=== PATIENT | female | born 1980 | race Caucasian/White ===

== ENCOUNTER 2018-04-11 18:52 | Inpatient (IN) | payer BC ==
[~2018-04-11] VITALS: Ht 165.1 cm; Wt 59.0 kg
[~2018-04-11 18:52] MED LIST: IBUP-1222 PO; OXYC-302 PO; none per pt
[2018-04-11 19:44] LABS: MICROSCOPIC AUTO
[2018-04-11] MEDS ORDERED: BETAMETHASONE 6 MG/ML, 5ML IM ONE (20:15)
[2018-04-11] MEDS: BETAMETHASONE 6 MG/ML, 5ML IM SCH (20:22)
[2018-04-11] MEDS ORDERED: MAGNESIUM SULF. PMX 20GM/500ML 500 ML IV ONE (20:22)
[2018-04-11] MEDS: PLEASE ENTER HEIGHT AND WEIGHT MC SCH (20:30)
[2018-04-11] MEDS ORDERED: MAGNESIUM SULFATE PMX 4GM/100M 100 ML IVPB ONE (21:00)
[2018-04-11] MEDS: MAGNESIUM SULF. PMX 20GM/500ML 500 ML IV SCH (21:09)
[2018-04-11 23:26] LABS: BASOPHILS # (AUTO) 0.03 x10^3/uL (0-0.1); BASOPHILS % (AUTO) 0 % (0-1); EOSINOPHILS # (AUTO) 0.04 x10^3/uL (0-0.4); EOSINOPHILS % (AUTO) 0 % (1-7); LYMPHOCYTES # (AUTO) 1.23 x10^3/uL (1-3.4); LYMPHOCYTES % (AUTO) 10 % (22-44); MD NO; MEAN CORPUSCULAR HEMOGLOBIN 32.3 pg (27.0-34.8); MEAN CORPUSCULAR HGB CONC 33.8 g/dL (32.4-35.8); MEAN CORPUSCULAR VOLUME 95.7 fL (80-100); MONOCYTES % (AUTO) 3 % (2-9); NEUTROPHILS # (AUTO) 10.45 x10^3/uL (1.8-6.8); NEUTROPHILS % (AUTO) 87 % (42-75); PLATELET COUNT 163 x10^3/uL (130-400); RED BLOOD COUNT 4.31 x10^6/uL (3.82-5.3); RED CELL DISTRIBUTION WIDTH 13.8 % (9.6-15.2)
[2018-04-11 23:38] LABS: ALANINE AMINOTRANSFERASE 20 U/L (12-78); ALBUMIN 2.5 g/dL (3.4-5.0); ANION GAP 8 mmol/L (5-15); CHLORIDE 107 mmol/L (98-107); CREATININE 0.49 mg/dL (0.55-1.02)
[2018-04-11 23:40] LABS: ALKALINE PHOSPHATASE 119 U/L (45-117); BILIRUBIN,TOTAL 0.2 mg/dL (0.2-1.0); TOTAL PROTEIN 6.4 g/dL (6.4-8.2)
[2018-04-12] MEDS ORDERED: MAGNESIUM SULF. PMX 20GM/500ML 500 ML IV ONE ×2 (03:19→18:51)
[2018-04-12] MEDS: MAGNESIUM SULF. PMX 20GM/500ML 500 ML IV SCH ×3 (03:23→18:55)
[2018-04-12] MEDS: LACTATED RINGERS 1,000 ML IV PRN ×2 (03:24→11:52)
[2018-04-12] MEDS: PLEASE ENTER HEIGHT AND WEIGHT MC SCH ×2 (04:30→12:30)
[2018-04-12] MEDS: INDOMETHACIN 50 MG CAPSULE PO SCH ×3 (09:56→22:01)
[2018-04-12] MEDS ORDERED: INDOMETHACIN 50 MG CAPSULE PO SCH (11:00)
[2018-04-12] MEDS ORDERED: BETAMETHASONE 6 MG/ML, 5ML IM ONE (20:17)
[2018-04-12] MEDS: BETAMETHASONE 6 MG/ML, 5ML IM SCH (20:20)
[2018-04-13] MEDS: INDOMETHACIN 50 MG CAPSULE PO SCH ×4 (03:27→23:11)
[2018-04-13] MEDS: LACTATED RINGERS 1,000 ML IV PRN (07:32)
[2018-04-13] MEDS ORDERED: MAGNESIUM SULF. PMX 20GM/500ML 500 ML IV ONE (07:44)
[2018-04-13] MEDS ORDERED: PRENATAL VIT/IRON/FA 1 EACH TABLET ONE (07:44)
[2018-04-13] MEDS ORDERED: DOCUSATE 100 MG CAPSULE ONE ×2 (07:44→20:36)
[2018-04-13] MEDS: DOCUSATE 100 MG CAPSULE PO SCH ×2 (07:49→20:40)
[2018-04-13] MEDS: PRENATAL VIT/IRON/FA 1 EACH TABLET PO SCH (07:49)
[2018-04-13] MEDS ORDERED: INDOMETHACIN 50 MG CAPSULE ONE ×3 (07:52→23:09)
[2018-04-13] MEDS: MAGNESIUM SULF. PMX 20GM/500ML 500 ML IV SCH (07:53)
[2018-04-13 09:30] VITALS: BP 98/56
[2018-04-13] MEDS ORDERED: CEFAZOLIN PMX 2GM/50ML 50 ML IVPB ONE (13:30)
[2018-04-13] MEDS: CEPHALEXIN 500 MG CAPSULE PO SCH (20:57)
[2018-04-14] MEDS ORDERED: INDOMETHACIN 50 MG CAPSULE ONE ×3 (04:52→17:18)
[2018-04-14] MEDS: INDOMETHACIN 50 MG CAPSULE PO SCH ×3 (04:54→17:19)
[2018-04-14] MEDS ORDERED: DOCUSATE 100 MG CAPSULE ONE (08:54)
[2018-04-14] MEDS ORDERED: PRENATAL VIT/IRON/FA 1 EACH TABLET ONE (08:54)
[2018-04-14] MEDS: DOCUSATE 100 MG CAPSULE PO SCH (09:00)
[2018-04-14] MEDS: CEPHALEXIN 500 MG CAPSULE PO SCH (09:26)
[2018-04-14] MEDS: PRENATAL VIT/IRON/FA 1 EACH TABLET PO SCH (09:26)
[2018-04-14] MEDS: SODIUM CHLORIDE FLUSH 10ML SYR IVF SCH ×2 (09:27→20:00)
[2018-04-15] MEDS ORDERED: INDOMETHACIN 50 MG CAPSULE ONE (03:52)
[2018-04-15] MEDS ORDERED: PRENATAL VIT/IRON/FA 1 EACH TABLET ONE (07:24)
[2018-04-15] MEDS: PRENATAL VIT/IRON/FA 1 EACH TABLET PO SCH (07:26)
[2018-04-15] MEDS: DOCUSATE 100 MG CAPSULE PO SCH ×2 (07:38→09:00)
[2018-04-15 07:45] VITALS: BP 94/51
[2018-04-15] MEDS ORDERED: PREN1TAB60 PO (07:51)
[2018-04-15] MEDS: SODIUM CHLORIDE FLUSH 10ML SYR IVF SCH (09:52)
== END 2018-04-15 18:02 | disposition home or self-care (01) | DRG 781 ==
LOC: LDOP 18:52 → LDIP 20:46
PROVIDERS: ADMIT Obstetrics & Gynecology Gynecology; ATTEND Obstetrics & Gynecology Gynecology
DX: O23.42 Unspecified infection of urinary tract in pregnancy, second trimester (principal); O26.872 Cervical shortening, second trimester; O60.02 Preterm labor without delivery, second trimester; O30.042 Twin pregnancy, dichorionic/diamniotic, second trimester; Z3A.27 27 weeks gestation of pregnancy
CPT/HCPCS: 36415; 76805; 80053; 81001; 82731; 83735; 85025; 87077; 87081; 87086; J0690; J0702; J3475; J7120

== ENCOUNTER 2018-04-16 19:14 | Inpatient (IN) | payer BC ==
[~2018-04-16] VITALS: Ht 165.1 cm; Wt 64.1 kg
[~2018-04-16 19:14] MED LIST changes: +PREN1TAB60 PO
[2018-04-16] MEDS: PLEASE ENTER HEIGHT AND WEIGHT MC SCH ×3 (19:30→23:30)
[2018-04-16] MEDS ORDERED: MAGNESIUM SULF. PMX 20GM/500ML 500 ML IV ONE (20:11)
[2018-04-16] MEDS ORDERED: LACTATED RINGERS 1,000 ML IV PRN (20:12)
[2018-04-16] MEDS ORDERED: MAGNESIUM SULF. PMX 20GM/500ML 500 ML IV SCH (20:12)
[2018-04-16] MEDS ORDERED: MAGNESIUM SULFATE PMX 4GM/100M 100 ML ONE (20:28)
[2018-04-16] MEDS ORDERED: CALCIUM GLUCONATE 4.6 MEQ/10 ML IV PRN (20:30)
[2018-04-16] MEDS ORDERED: PLEASE ENTER HEIGHT AND WEIGHT MC SCH (20:30)
[2018-04-16] MEDS ORDERED: MAGNESIUM SULFATE PMX 4GM/100M 100 ML IVPB ONE (20:30)
[2018-04-16 21:25] VITALS: BP 103/65
[2018-04-17] MEDS: PLEASE ENTER HEIGHT AND WEIGHT MC SCH ×15 (01:30→23:30)
[2018-04-17] MEDS ORDERED: DOCUSATE 100 MG CAPSULE ONE (08:10)
[2018-04-17] MEDS ORDERED: PRENATAL VIT/IRON/FA 1 EACH TABLET ONE (08:10)
[2018-04-17] MEDS: PRENATAL VIT/IRON/FA 1 EACH TABLET PO SCH (08:14)
[2018-04-17] MEDS: DOCUSATE 100 MG CAPSULE PO SCH ×2 (08:14→21:00)
[2018-04-17] MEDS ORDERED: MAGNESIUM SULF. PMX 20GM/500ML 500 ML IV ONE ×2 (10:18→21:40)
[2018-04-17 20:00] VITALS: BP 104/61
[2018-04-17] MEDS ORDERED: MAGNESIUM SULF. PMX 20GM/500ML 500 ML IV SCH ×2 (20:12)
[2018-04-17] MEDS ORDERED: LACTATED RINGERS 1,000 ML IV PRN (20:12)
[2018-04-18 08:00] VITALS: BP 95/54
[2018-04-18] MEDS ORDERED: PRENATAL VIT/IRON/FA 1 EACH TABLET ONE (08:33)
[2018-04-18] MEDS ORDERED: DOCUSATE 100 MG CAPSULE ONE ×2 (08:33→21:27)
[2018-04-18] MEDS ORDERED: MAGNESIUM SULF. PMX 20GM/500ML 500 ML IV ONE ×2 (08:35→20:03)
[2018-04-18] MEDS: DOCUSATE 100 MG CAPSULE PO SCH ×2 (08:37→21:29)
[2018-04-18] MEDS: PRENATAL VIT/IRON/FA 1 EACH TABLET PO SCH (08:37)
[2018-04-18] MEDS: MAGNESIUM SULF. PMX 20GM/500ML 500 ML IV SCH ×2 (08:39→20:08)
[2018-04-18 12:00] VITALS: BP 100/64
[2018-04-18 16:00] VITALS: BP 104/64
[2018-04-18] MEDS: LACTATED RINGERS 1,000 ML IV PRN (20:09)
[2018-04-19] MEDS ORDERED: MAGNESIUM SULF. PMX 20GM/500ML 500 ML IV ONE ×2 (07:07→17:38)
[2018-04-19] MEDS: MAGNESIUM SULF. PMX 20GM/500ML 500 ML IV SCH ×2 (07:10→18:04)
[2018-04-19] MEDS ORDERED: PRENATAL VIT/IRON/FA 1 EACH TABLET ONE (08:14)
[2018-04-19] MEDS ORDERED: DOCUSATE 100 MG CAPSULE ONE ×2 (08:15→20:40)
[2018-04-19] MEDS: DOCUSATE 100 MG CAPSULE PO SCH ×2 (08:17→20:42)
[2018-04-19] MEDS: PRENATAL VIT/IRON/FA 1 EACH TABLET PO SCH (08:17)
[2018-04-19] MEDS: LACTATED RINGERS 1,000 ML IV PRN ×2 (09:46→20:42)
[2018-04-20] MEDS ORDERED: MAGNESIUM SULF. PMX 20GM/500ML 500 ML IV ONE (04:16)
[2018-04-20] MEDS: MAGNESIUM SULF. PMX 20GM/500ML 500 ML IV SCH (04:19)
[2018-04-20] MEDS ORDERED: SENNA/DOCUSATE TABLET ONE (08:01)
[2018-04-20] MEDS ORDERED: PRENATAL VIT/IRON/FA 1 EACH TABLET ONE (08:01)
[2018-04-20] MEDS: SENNA/DOCUSATE TABLET PO SCH ×2 (09:04→21:00)
[2018-04-20] MEDS: PRENATAL VIT/IRON/FA 1 EACH TABLET PO SCH (09:04)
[2018-04-20] MEDS ORDERED: MAGNESIUM SULF. PMX 20GM/500ML 500 ML IV SCH (10:30)
[2018-04-20] MEDS: LACTATED RINGERS 1,000 ML IV PRN (12:48)
[2018-04-20] MEDS: SODIUM CHLORIDE FLUSH 3ML SYRINGE IVF SCH (19:15)
[2018-04-20] MEDS ORDERED: INDOMETHACIN 50 MG CAPSULE ONE (21:55)
[2018-04-20] MEDS ORDERED: INDOMETHACIN 50 MG CAPSULE PO SCH (22:00)
[2018-04-21] MEDS ORDERED: INDOMETHACIN 50 MG CAPSULE ONE ×4 (03:25→22:11)
[2018-04-21] MEDS: INDOMETHACIN 50 MG CAPSULE PO SCH ×4 (03:53→22:15)
[2018-04-21] MEDS ORDERED: PRENATAL VIT/IRON/FA 1 EACH TABLET ONE (07:41)
[2018-04-21] MEDS ORDERED: DOCUSATE 100 MG CAPSULE ONE ×2 (07:41→21:07)
[2018-04-21] MEDS: DOCUSATE 100 MG CAPSULE PO SCH ×2 (07:46→21:12)
[2018-04-21] MEDS: PRENATAL VIT/IRON/FA 1 EACH TABLET PO SCH (07:46)
[2018-04-21 07:51] VITALS: BP 93/63
[2018-04-21] MEDS: SENNA/DOCUSATE TABLET PO SCH ×2 (09:00→21:00)
[2018-04-21 17:52] VITALS: BP 100/57
[2018-04-21] MEDS: SODIUM CHLORIDE FLUSH 3ML SYRINGE IVF SCH (21:12)
[2018-04-22] MEDS ORDERED: INDOMETHACIN 50 MG CAPSULE ONE ×4 (04:26→21:27)
[2018-04-22] MEDS: INDOMETHACIN 50 MG CAPSULE PO SCH ×5 (04:29→22:30)
[2018-04-22 07:29] VITALS: BP 98/58
[2018-04-22] MEDS ORDERED: DOCUSATE 100 MG CAPSULE ONE ×2 (07:38→21:26)
[2018-04-22] MEDS ORDERED: PRENATAL VIT/IRON/FA 1 EACH TABLET ONE (07:38)
[2018-04-22] MEDS: DOCUSATE 100 MG CAPSULE PO SCH ×4 (07:40→22:11)
[2018-04-22] MEDS: PRENATAL VIT/IRON/FA 1 EACH TABLET PO SCH (07:40)
[2018-04-22] MEDS: SENNA/DOCUSATE TABLET PO SCH ×2 (09:00→21:00)
[2018-04-22] MEDS: SODIUM CHLORIDE FLUSH 3ML SYRINGE IVF SCH ×3 (09:00→22:13)
[2018-04-22 20:00] VITALS: BP 112/55
[2018-04-22] MEDS ORDERED: SENNA/DOCUSATE TABLET ONE (21:26)
[2018-04-23 00:48] VITALS: BP 102/58
[2018-04-23] MEDS: INDOMETHACIN 50 MG CAPSULE PO SCH ×2 (04:30→10:30)
[2018-04-23 07:00] VITALS: BP 97/59
[2018-04-23] MEDS: DOCUSATE 100 MG CAPSULE PO SCH ×2 (09:00→21:00)
[2018-04-23] MEDS: SENNA/DOCUSATE TABLET PO SCH (09:00)
[2018-04-23] MEDS: SODIUM CHLORIDE FLUSH 3ML SYRINGE IVF SCH (09:00)
[2018-04-23] MEDS ORDERED: PRENATAL VIT/IRON/FA 1 EACH TABLET ONE (19:34)
[2018-04-23] MEDS ORDERED: DOCUSATE 100 MG CAPSULE ONE (19:35)
[2018-04-23] MEDS: PRENATAL VIT/IRON/FA 1 EACH TABLET PO SCH (19:38)
[2018-04-23 19:43] VITALS: BP 101/58
[2018-04-24] MEDS ORDERED: PRENATAL VIT/IRON/FA 1 EACH TABLET ONE (08:06)
[2018-04-24] MEDS ORDERED: DOCUSATE 100 MG CAPSULE ONE ×2 (08:06→23:05)
[2018-04-24] MEDS: DOCUSATE 100 MG CAPSULE PO SCH ×2 (08:14→21:00)
[2018-04-24] MEDS: PRENATAL VIT/IRON/FA 1 EACH TABLET PO SCH (09:00)
[2018-04-24 23:00] VITALS: BP 105/54
[2018-04-25] MEDS ORDERED: PRENATAL VIT/IRON/FA 1 EACH TABLET ONE (07:26)
[2018-04-25] MEDS ORDERED: DOCUSATE 100 MG CAPSULE ONE (07:26)
[2018-04-25] MEDS: DOCUSATE 100 MG CAPSULE PO PRN (07:27)
[2018-04-25] MEDS: PRENATAL VIT/IRON/FA 1 EACH TABLET PO SCH (07:27)
[2018-04-25 15:22] VITALS: BP 100/55
[2018-04-26 07:06] VITALS: BP 100/51
[2018-04-26] MEDS: DOCUSATE 100 MG CAPSULE PO PRN (07:10)
[2018-04-26] MEDS ORDERED: PRENATAL VIT/IRON/FA 1 EACH TABLET ONE (07:36)
[2018-04-26] MEDS: PRENATAL VIT/IRON/FA 1 EACH TABLET PO SCH (07:37)
== END 2018-04-27 12:43 | disposition home or self-care (01) | DRG 782 ==
LOC: LDOP 19:14 → LDIP 20:21
PROVIDERS: ADMIT Obstetrics & Gynecology Gynecology; ATTEND Obstetrics & Gynecology Gynecology
DX: O30.033 Twin pregnancy, monochorionic/diamniotic, third trimester (principal); O60.03 Preterm labor without delivery, third trimester; O34.211 Maternal care for low transverse scar from previous cesarean delivery; O32.1XX0 Maternal care for breech presentation, not applicable or unspecified; Z3A.29 29 weeks gestation of pregnancy
CPT/HCPCS: 36415; 76815; 76819; 83735; J3475; J7120

== ENCOUNTER 2018-05-12 12:18 | Outpatient (CLI) | payer BC ==
[2018-05-13] MEDS ORDERED: NIFE10CA2 PO (14:01)
== END 2018-05-12 16:32 | disposition home or self-care (01) ==
LOC: LDOP 12:18
PROVIDERS: ATTEND Obstetrics & Gynecology Gynecology
DX: O30.003 Twin pregnancy, unspecified number of placenta and unspecified number of amniotic sacs, third trimester (principal); Z3A.32 32 weeks gestation of pregnancy
CPT/HCPCS: 59025; 76819; 99211; G0463

== ENCOUNTER 2018-05-13 12:18 | Outpatient (CLI) | payer BC ==
[~2018-05-13] VITALS: Ht 165.1 cm; Wt 60.5 kg
[2018-05-13 12:57] VITALS: BP 104/58
[2018-05-13] MEDS ORDERED: NIFE10CA2 PO (14:01)
== END 2018-05-13 14:24 | disposition home or self-care (01) ==
LOC: LDOP 12:18
PROVIDERS: ATTEND Obstetrics & Gynecology Gynecology
DX: O36.8130 Decreased fetal movements, third trimester, not applicable or unspecified (principal); Z3A.32 32 weeks gestation of pregnancy
CPT/HCPCS: 59025; 99211; G0463

== ENCOUNTER 2018-05-15 10:37 | Inpatient (IN) | payer BC ==
[~2018-05-15] VITALS: Ht 165.1 cm; Wt 60.5 kg
[~2018-05-15 10:37] MED LIST changes: +NIFE10CA2 PO
[2018-05-15] MEDS ORDERED: MAGNESIUM SULF. PMX 20GM/500ML 500 ML IV SCH (11:17)
[2018-05-15] MEDS ORDERED: LACTATED RINGERS 1,000 ML IV PRN (11:17)
[2018-05-15] MEDS ORDERED: MAGNESIUM SULF. PMX 20GM/500ML 500 ML IV ONE ×2 (11:21→15:38)
[2018-05-15] MEDS ORDERED: MAGNESIUM SULFATE PMX 4GM/100M 100 ML IVPB ONE (11:30)
[2018-05-15 11:47] LABS: BASOPHILS # (AUTO) 0.02 x10^3/uL (0-0.1); BASOPHILS % (AUTO) 0 % (0-1); EOSINOPHILS # (AUTO) 0.07 x10^3/uL (0-0.4); EOSINOPHILS % (AUTO) 1 % (1-7); LYMPHOCYTES # (AUTO) 1.55 x10^3/uL (1-3.4); LYMPHOCYTES % (AUTO) 20 % (22-44); MD NO; MEAN CORPUSCULAR HEMOGLOBIN 32.9 pg (27.0-34.8); MEAN CORPUSCULAR HGB CONC 34.4 g/dL (32.4-35.8); MEAN CORPUSCULAR VOLUME 95.9 fL (80-100); MEAN PLATELET VOLUME 8.4 fL (7.4-10.4); MONOCYTES % (AUTO) 13 % (2-9); NEUTROPHILS # (AUTO) 4.93 x10^3/uL (1.8-6.8); NEUTROPHILS % (AUTO) 65 % (42-75); PLATELET COUNT 138 x10^3/uL (130-400); RED BLOOD COUNT 3.79 x10^6/uL (3.82-5.3); RED CELL DISTRIBUTION WIDTH 13.7 % (9.6-15.2)
[2018-05-15 12:45] LABS: ALBUMIN 2.1 g/dL (3.4-5.0); ANION GAP 8 mmol/L (5-15); CHLORIDE 109 mmol/L (98-107)
[2018-05-15 12:48] LABS: ALANINE AMINOTRANSFERASE 16 U/L (12-78); ALKALINE PHOSPHATASE 176 U/L (45-117); BILIRUBIN,TOTAL 0.4 mg/dL (0.2-1.0); CREATININE 0.51 mg/dL (0.55-1.02); TOTAL PROTEIN 5.6 g/dL (6.4-8.2)
[2018-05-15] MEDS ORDERED: OXYTOCIN 30U/ 0.9% NaCL 500ML 500 ML ONE (15:38)
[2018-05-15] MEDS ORDERED: METOCLOPRAMIDE 5 MG/ML, 2ML ONE (16:35)
[2018-05-15] MEDS ORDERED: SODIUM CITRATE/CITRIC ACID 30 ML UDC ONE (16:36)
[2018-05-15] MEDS ORDERED: LACTATED RINGERS 1,000 ML IV SCH ×2 (16:38→16:54)
[2018-05-15] MEDS ORDERED: CEFAZOLIN 1,000 MG ONE (16:45)
[2018-05-15] MEDS ORDERED: PHENYLEPHRINE 10 MG/ML ONE (16:45)
[2018-05-15] MEDS ORDERED: EPHEDRINE 50 MG/ML, 1ML ONE (16:45)
[2018-05-15] MEDS ORDERED: KETOROLAC 30 MG/1 ML ONE (16:45)
[2018-05-15] MEDS ORDERED: DEXAMETHASONE 4 MG/ML, 1ML ONE (16:45)
[2018-05-15] MEDS ORDERED: ONDANSETRON 2MG/ML, 2ML ONE (16:45)
[2018-05-15] MEDS ORDERED: OXYTOCIN 10 UNITS/ML, 1ML ONE (16:45)
[2018-05-15] MEDS ORDERED: FENTANYL PF 100 MCG/2ML ONE (16:45)
[2018-05-15] MEDS: LACTATED RINGERS 1,000 ML IV SCH (16:54)
[2018-05-15] MEDS: OXYTOCIN 30U/ 0.9% NaCL 500ML 500 ML IV SCH (16:54)
[2018-05-15] MEDS ORDERED: LACTATED RINGERS 1,000 ML IVBOLUS ONE (17:00)
[2018-05-15] MEDS ORDERED: OXYcodone/APAP 5/325MG TABLET PO PRN (17:00)
[2018-05-15] MEDS ORDERED: MISOPROSTOL 200 MCG TABLET PR PRN (17:00)
[2018-05-15] MEDS ORDERED: MEASLES,MUMPS&RUBELLA VACC/PF 0.5 ML SQ-VACC PRN (17:00)
[2018-05-15] MEDS ORDERED: CALCIUM CARBONATE 500 MG TAB.CHEW PO PRN (17:00)
[2018-05-15] MEDS ORDERED: METOCLOPRAMIDE 5 MG/ML, 2ML IV ONE (17:00)
[2018-05-15] MEDS ORDERED: KETOROLAC 30 MG/1 ML IV SCH (17:00)
[2018-05-15] MEDS ORDERED: ONDANSETRON 2MG/ML, 2ML IV PRN (17:00)
[2018-05-15] MEDS ORDERED: SIMETHICONE 80 MG CHEW TAB PO PRN (17:00)
[2018-05-15] MEDS ORDERED: DIPH,PERTUSS(ACELL),TET VAC/PF NC IM-VACC PRN (17:00)
[2018-05-15] MEDS ORDERED: ACETAMINOPHEN 325 MG TABLET PO PRN ×2 (17:00)
[2018-05-15] MEDS ORDERED: SODIUM CITRATE/CITRIC ACID 30 ML UDC PO ONE (17:00)
[2018-05-15] MEDS ORDERED: NEWBORN KIT ONE (17:27)
[2018-05-15] MEDS ORDERED: MEPERIDINE/PF 100 MG/ML ONE (18:30)
[2018-05-15] MEDS ORDERED: HYDROcodone/APAP 7.5-325MG/15ML UDC ONE (20:04)
[2018-05-15] MEDS ORDERED: HYDROcodone/APAP 7.5-325MG/15ML UDC PO ONE (20:30)
[2018-05-15] MEDS ORDERED: MEPERIDINE/PF 25MG/0.5ML IVPush PRN (20:30)
[2018-05-15 21:20] VITALS: BP 105/67
[2018-05-16] MEDS: KETOROLAC 30 MG/1 ML IV SCH ×4 (00:01→18:25)
[2018-05-16 00:15] VITALS: BP 100/65
[2018-05-16] MEDS: LACTATED RINGERS 1,000 ML IV SCH ×3 (00:54→16:54)
[2018-05-16] MEDS: OXYcodone/APAP 5/325MG TABLET PO PRN ×3 (01:17→06:15)
[2018-05-16] MEDS: OXYTOCIN 30U/ 0.9% NaCL 500ML 500 ML IV SCH ×3 (02:34→22:54)
[2018-05-16 04:10] VITALS: BP 94/60
[2018-05-16 05:26] LABS: BASOPHILS # (AUTO) 0.01 x10^3/uL (0-0.1); BASOPHILS % (AUTO) 0 % (0-1); EOSINOPHILS % (AUTO) 0 % (1-7); LYMPHOCYTES # (AUTO) 1.28 x10^3/uL (1-3.4); LYMPHOCYTES % (AUTO) 11 % (22-44); MD NO; MEAN CORPUSCULAR HEMOGLOBIN 32.9 pg (27.0-34.8); MEAN CORPUSCULAR HGB CONC 34.1 g/dL (32.4-35.8); MEAN CORPUSCULAR VOLUME 96.4 fL (80-100); MEAN PLATELET VOLUME 8.8 fL (7.4-10.4); MONOCYTES # (AUTO) 1.27 x10^3/uL (0.2-0.8); MONOCYTES % (AUTO) 11 % (2-9); NEUTROPHILS # (AUTO) 8.65 x10^3/uL (1.8-6.8); NEUTROPHILS % (AUTO) 77 % (42-75); PLATELET COUNT 135 x10^3/uL (130-400); RED BLOOD COUNT 3.31 x10^6/uL (3.82-5.3); RED CELL DISTRIBUTION WIDTH 13.7 % (9.6-15.2)
[2018-05-16 07:00] VITALS: BP 96/66
[2018-05-16] MEDS: PRENATAL VIT/IRON/FA 1 EACH TABLET PO SCH (07:32)
[2018-05-16] MEDS: DOCUSATE 100 MG CAPSULE PO PRN ×2 (07:33→20:40)
[2018-05-16 12:00] VITALS: BP 109/66
[2018-05-16] MEDS: OXYcodone IR 5MG TABLET PO PRN ×2 (16:36→20:40)
[2018-05-16 19:20] VITALS: BP 107/64
[2018-05-17] MEDS: KETOROLAC 30 MG/1 ML IV SCH ×4 (00:36→18:35)
[2018-05-17] MEDS: OXYcodone IR 5MG TABLET PO PRN ×5 (00:37→21:43)
[2018-05-17] MEDS: LACTATED RINGERS 1,000 ML IV SCH ×3 (00:54→16:54)
[2018-05-17] MEDS: OXYTOCIN 30U/ 0.9% NaCL 500ML 500 ML IV SCH ×2 (08:54→18:54)
[2018-05-17] MEDS: PRENATAL VIT/IRON/FA 1 EACH TABLET PO SCH (09:00)
[2018-05-17 09:15] VITALS: BP 107/71
[2018-05-17] MEDS: DOCUSATE 100 MG CAPSULE PO PRN (09:20)
[2018-05-17 20:00] VITALS: BP 108/72
[2018-05-18] MEDS: LACTATED RINGERS 1,000 ML IV SCH ×3 (00:54→16:54)
[2018-05-18] MEDS: OXYcodone IR 5MG TABLET PO PRN ×5 (02:42→21:11)
[2018-05-18] MEDS: OXYTOCIN 30U/ 0.9% NaCL 500ML 500 ML IV SCH ×2 (04:54→14:54)
[2018-05-18] MEDS: IBUPROFEN 800 MG TABLET PO PRN ×3 (06:36→22:53)
[2018-05-18] MEDS: DOCUSATE 100 MG CAPSULE PO PRN ×2 (06:36→21:11)
[2018-05-18 07:30] VITALS: BP 112/75
[2018-05-18] MEDS: PRENATAL VIT/IRON/FA 1 EACH TABLET PO SCH (09:00)
[2018-05-18 19:30] VITALS: BP 110/72
[2018-05-19] MEDS: LACTATED RINGERS 1,000 ML IV SCH ×3 (00:54→16:54)
[2018-05-19] MEDS: OXYTOCIN 30U/ 0.9% NaCL 500ML 500 ML IV SCH ×2 (00:54→10:54)
[2018-05-19] MEDS: OXYcodone IR 5MG TABLET PO PRN ×5 (01:32→17:50)
[2018-05-19 06:50] VITALS: BP 110/59
[2018-05-19] MEDS: IBUPROFEN 800 MG TABLET PO PRN ×2 (07:29→15:14)
[2018-05-19] MEDS: DOCUSATE 100 MG CAPSULE PO PRN (07:29)
[2018-05-19] MEDS ORDERED: IBUP-1222 PO (08:52)
[2018-05-19] MEDS ORDERED: OXYC-302 PO (08:52)
[2018-05-19] MEDS: PRENATAL VIT/IRON/FA 1 EACH TABLET PO SCH (09:00)
== END 2018-05-19 18:03 | disposition home or self-care (01) | DRG 765 ==
LOC: LDOP 10:37 → LDIP 11:30 → 2NW 21:10
PROVIDERS: ADMIT Obstetrics & Gynecology Gynecology; ATTEND Obstetrics & Gynecology Gynecology
PROC: 10D00Z1 Extraction of Products of Conception, Low, Open Approach (ICD-10-PCS; principal; 2018-05-15)
PROC: 0UB70ZZ Excision of Bilateral Fallopian Tubes, Open Approach (ICD-10-PCS; 2018-05-15)
DX: O34.211 Maternal care for low transverse scar from previous cesarean delivery (principal); O60.14X0 Preterm labor third trimester with preterm delivery third trimester, not applicable or unspecified; Z37.2 Twins, both liveborn; O32.1XX2 Maternal care for breech presentation, fetus 2; O69.81X0 Labor and delivery complicated by cord around neck, without compression, not applicable or unspecified; O30.033 Twin pregnancy, monochorionic/diamniotic, third trimester; Z30.2 Encounter for sterilization; Z3A.32 32 weeks gestation of pregnancy
CPT/HCPCS: 36415; 80053; 82803; 83735; 85025; 86850; 86900; 88302; 88305; J0690; J1100; J1885; J2405; J3010; J2370; J2590; J2765; J3475; J7120

== ENCOUNTER 2018-06-08 10:12 | Emergency (ER) | payer BC ==
[~2018-06-08] VITALS: Ht 165.1 cm; Wt 50.0 kg
[2018-06-08 11:13] LABS: BASOPHILS # (AUTO) 0.01 x10^3/uL (0-0.1); BASOPHILS % (AUTO) 0 % (0-1); EOSINOPHILS # (AUTO) 0.15 x10^3/uL (0-0.4); EOSINOPHILS % (AUTO) 3 % (1-7); LYMPHOCYTES # (AUTO) 1.73 x10^3/uL (1-3.4); LYMPHOCYTES % (AUTO) 34 % (22-44); MD NO; MEAN CORPUSCULAR HEMOGLOBIN 32.6 pg (27.0-34.8); MEAN CORPUSCULAR HGB CONC 33.8 g/dL (32.4-35.8); MEAN CORPUSCULAR VOLUME 96.3 fL (80-100); MEAN PLATELET VOLUME 8.2 fL (7.4-10.4); MONOCYTES # (AUTO) 0.44 x10^3/uL (0.2-0.8); MONOCYTES % (AUTO) 9 % (2-9); NEUTROPHILS # (AUTO) 2.76 x10^3/uL (1.8-6.8); NEUTROPHILS % (AUTO) 54 % (42-75); PLATELET COUNT 276 x10^3/uL (130-400); RED CELL DISTRIBUTION WIDTH 13.4 % (9.6-15.2)
[2018-06-08 11:17] LABS: MICROSCOPIC NOT IND
[2018-06-08 11:19] LABS: CULTURE INDICATED? NO
[2018-06-08 11:23] LABS: ALBUMIN 3.2 g/dL (3.4-5.0); ANION GAP 6 mmol/L (5-15); CALCIUM 8.2 mg/dL (8.5-10.1); CHLORIDE 109 mmol/L (98-107); CREATININE 0.91 mg/dL (0.55-1.02)
[2018-06-08 11:36] VITALS: BP 90/55
== END 2018-06-08 12:29 | disposition home or self-care (01) ==
LOC: ED 11:28
DX: R10.9 Unspecified abdominal pain (principal); Z48.01 Encounter for change or removal of surgical wound dressing
CPT/HCPCS: 36415; 76857; 80048; 81003; 82040; 85025; 99285